=== PATIENT | male | born 1935 | race Caucasian/White ===

== ENCOUNTER 2019-02-03 12:12 | Inpatient (IN) ==
[2019-02-03] MEDS ORDERED: Ethanol\\Acetic Acid\\Na Ace\\Ben 1,000 ML IRRIG.SOLN IR ONE (12:30)
[2019-02-03] MEDS ORDERED: CeFAZolin Syr 2,000MG/20 ML 2,000 MG/20 ML SYRINGE IVPB ONE (12:33)
[2019-02-03] MEDS ORDERED: Ringers Solution, Lactated 1,000 ML IVC SCH ×2 (12:45→16:03)
--- NOTE | 2019-02-03 13:03 | Anesthesia Evaluation PreOp ---
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, Other ( Spinal stenosis, SCS, Chronic Lumbar back pain) Other Medical History: Denies Any Significant HX, GERD Anesthesia History: No Prior Anesthetic Complications, Past Anesthesia (BAck surgery, Knee surgery, Shoulder surgery) Alcohol Use: occasionally Drug use: none Medications and Allergies Aspirin [Lo-Dose Aspirin EC] 81 mg PO DAILY 02/03/19 [History] Omeprazole [PriLOSEC] 40 mg PO DAILY 02/03/19 [History] Simvastatin [Zocor] 80 mg PO DAILY 02/03/19 [History] Allergy/AdvReac Type Severity Reaction Status Date / Time No Known Allergies Allergy Verified 03/28/16 06:52 - Meds/Allergy Pre-op Review Medications Reviewed: Yes Allergies Reviewed: Yes Beta Blockers on Current Med List: No Anesthesia Results - Labs Laboratory Tests 02/02/19 02/02/19 02/02/19 16:07 16:07 16:07 WBC 5.2 Hgb 13.1 Hct 40.4 Plt Count 256 PT 11.3 INR 1.0 Sodium 139 Potassium 4.5 Chloride 105 Carbon Dioxide 26 BUN 26 H Creatinine 1.25 Est GFR (Non-Af Amer) 55 L - Imaging EKG: pending Anesthesia Exam O2 Sat Height 1.75 m Height 1.75 m Weight 72.121 kg Weight 72.121 kg O2 Sat by Pulse Oximetry 100 Vital Signs Temp Pulse Resp BP Pulse Ox 98.6 F 75 18 127/71 100 02/03/19 12:50 02/03/19 12:50 02/03/19 12:50 02/03/19 12:50 02/03/19 12:50 Height: 5'9" Weight: 159# BMI = 23.5 NPO (# of Hours): MNOc - HEENT Pupil (Motor): Pupils equal, EOMI Mallampati: II Teeth: Missing (several lower missing), Edentulous (upper) Oral Opening: Greater than 3 - 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 LOC: Oriented 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 Motor: Normal RUE, Normal LUE, Normal RLE, Normal LLE, Normal Face 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
[2019-02-03] MEDS ORDERED: Acetaminophen IV 1,000 MG/100 ML INFUS..BTL IVPB ONE (13:04)
[2019-02-03] MEDS ORDERED: Famotidine 20 MG/2 ML VIAL IVP ONE (13:04)
--- NOTE | 2019-02-03 13:15 | History & Physical Report ---
Date of Encounter: 02/03/19 Time of Encounter: 13:15 24 Hour HP Update - Instructions Instructions: If the History and Physical is less than 30 days old and was completed prior to A.M. admission and or procedure and has NOT been updated on calendar day of procedure please complete this update prior to performing procedure. - Update Patient reports changes in Medical Condition: No Changes in examination, assessment, or condition: No Changes in Medication: No Preop tests/diagnostics Reviewed: Yes Surgery Remains Indicated: Yes Consent for Planned Operative Procedure(s) Verified: Yes - Pre-Operative Checklist Preoperative Checklist Indicated: No Prophylactic Antibiotic Ordered: Yes Is VTE Prophylaxis Indicated?: Yes
[2019-02-03] MEDS ORDERED: *HR* FentaNYL (PF) 100 MCG/2 ML VIAL ONE (13:38)
[2019-02-03] MEDS ORDERED: *HR* Midazolam HCl 2 MG/2 ML VIAL ONE (13:38)
[2019-02-03] MEDS ORDERED: *HR* Propofol 200 MG/20 ML VIAL IVP ONE (13:38)
[2019-02-03] MEDS ORDERED: Lidocaine -MPF 2% 2 ML VIAL ONE (13:39)
[2019-02-03] MEDS ORDERED: ROPIVACAINE/PF/NS 0.25% 1 EACH SYRINGE INTRAART ONE (13:41)
[2019-02-03] MEDS ORDERED: Ropivacaine/PF 0.5% 30 ML VIAL ONE (13:41)
[2019-02-03] MEDS ORDERED: *HR* PHENYLEPHRINE 1,000 MCG/10 ML SYRINGE IVP ONE ×2 (14:16→14:52)
[2019-02-03] MEDS ORDERED: EPHEDrine 50 MG/ML VIAL ONE (14:25)
--- NOTE | 2019-02-03 14:49 | Anesthesia Procedures ---
Date of Encounter: 02/03/19 Time of Encounter: 13:42 Procedures: Anesthesia - Nerve Block Procedure Date: 02/03/19 Time: 13:42 Surgical Procedure: right total shoulder Checklist: Correct Patient Identifier, Correct procedure, History checked Correct side: Right Blood Thinner: No Monitor Applied: EKG, BP, Pulse Oximetry Supplemental Oxygen via Nasal Cannula (L/min): 2 Sedation: Versed (mg): 1 Sedation: Fentanyl (mcg): 50 Indication: Post Op Analgesia Block Type: Supraclavicular Catheter placed: No Sterile Technique: Yes Ultrasound used: Yes Anatomy identified: Yes Visual spread of Local: Yes Neuro Stimulation: No Blood on Needle Aspiration: No Smooth Injection of Local: Yes Pain with Injection of Local: No Prep: Chlorhexadine Needle: 22 x 50 mm Stimuplex Local: Ropivacaine (24ml 0.5% rop with 8mg decadron, (15ml 0.25% Rop plain, 5 for SCP, 10 for ICB)) Volume (cc): 41 Number of Attempts: 1 Complications: None/effective block Vitals: vss though out, block per request of surgeon.
--- NOTE | 2019-02-03 14:57 | Orthopedic Operative Note ---
Date of procedure: 02/03/19 Pre-op diagnosis: Right shoulder cuff tear arthropathy Post-op diagnosis: same Procedure: Procedure: Total Shoulder Replacment Reverse, right Estimated blood loss: 50 cc Hardware: Metal and polyethylene replacement: Arthrex 28, +4 , 40 mm post glenoid baseplate, 4 locking 5.5 screw, 42+4 glenosphere, 10 [place] humeral stem, poly insert 3 Exam Under anesthesia: Full motion no stability Procedural Notes: Irreparable rotator cuff tear Operative procedure: The patient was brought to the operating room and placed on the operating room table. After general anesthesia was administered the operative shoulder was examined. Findings were noted. The patient was placed in the modified beachchair position. All pressure points were padded appropriately. And the head was stabilized in the neutral position. The operative extremity was prepped and draped in the sterile surgical fashion. The patient received IV antibiotics prior to skin incision. A standard deltopectoral approach was made to the operative shoulder. Incision was made to the skin and subcutaneous tissue,hemo stasis was obtained with Bovie cautery. Using careful blunt dissection the cephalic vein was identified and mobilized medially. The deltopectoral interval was developed and the clavipectoral fascia was incised. The subscap was released off the lesser tuberosity and tagged with #2 FiberWire suture subscap was irreparable. The humerus was dislocated patient noted to have irreparable tear supraspinatus tendon, and the humeral cut was made along the anatomic neck. Anterior and posterior Bankart retractors were placed to expose the glenoid. The glenoid guide was seated and the centering hole was made. It was reamed with the appropriate reamer. The baseplate was seated and secured with 4 locking 5.5 screw. The baseplate was irrigated and dried and the Glenosphere was seated and secured with the Brandon taper. The Brandon taper was tested and found to be secure, glenosphere fixation was secondarily secured with the central screw. The humerus was redislocated and prepared with the diaphyseal reamers, followed by a broaching process up to the appropriate size [place] stem in the patient's anatomic version. The metaphyseal reamer was then utilized. Trial reduction found the shoulder to be relocatable. Trial components were removed and the [place] stem was impacted in place in the patient's anatomic version. Trial reduction found the shoulder to be relocatable and stable with the appropriate 3 poly. Trial component was removed and the real implant was seated and secured the shoulder was reduced. The shoulder had excellent motion and excellent stability and no evidence of dislocation. The deep tissue was irrigated with pulse irrigation. The PA close the shoulder. The deltopectoral interval was closed with a running #1 PDS suture, subcutaneous tissue was irrigated and closed with 0 PDS suture, the skin was closed with Dermabond. The patient was placed in a sterile dressing, abduction brace and extubated. The patient was then transferred to the recovery room in stable condition. Anesthesia: GETKaterina Surgeon: Benny Sanchez Was there an senior it assistant present: Yes Hitcher: Agustin Spivey Estimated blood loss (cc): 50 Condition: stable Disposition: PACU
--- NOTE | 2019-02-03 15:14 | Discharge Summary ---
<Beth Berg E - Last Filed: 02/04/19 23:26> Orders not resulted at time of discharge: Pending orders 02/03/19 15:00 Surgical Pathology [PTH] Routine Date of Encounter: 02/03/19 Time of Encounter: 16:00 - Discharge Diagnosis (1) Status post reverse arthroplasty of right shoulder Status: Acute - Hospital Course Hospital course: Mr. Sandra is a 83 year old male The patient's postoperative course was uneventful. Progressed from intravenous analgesic needs to oral analgesic needs only. Remained neurovascularly intact and mobilized satisfactorily. All radiographic studies were satisfactory. Patient course and disposition was followed by Dr. Sanchez. Patient seen by Dr. Sanchez as discharging physician on this day. Patient is discharged to home with outpatient therapy as plan for rehabilitation and outpatient orthopedic follow up has been arranged. - Time Spent with Patient Total time spent providing and/or coordinating discharge services: - Discharge Medications Prescriptions: New Docusate [Colace] 100 mg PO BID 5 Days #10 capsule Acetaminophen [Pain Relief] 500 mg PO Q6H 7 Days #28 tablet OxyCODONE Immed Rel [Roxicodone 5 MG] 5 mg PO Q6HR PRN 5 Days #20 tablet PRN Reason: Severe Pain Continued Simvastatin [Zocor] 80 mg PO DAILY Aspirin [Lo-Dose Aspirin EC] 81 mg PO DAILY Omeprazole [PriLOSEC] 40 mg PO DAILY Home Medications: Acetaminophen [Pain Relief] 500 mg PO Q6H 7 Days #28 tablet 02/03/19 [Rx] Aspirin [Lo-Dose Aspirin EC] 81 mg PO DAILY 02/03/19 [History] Docusate [Colace] 100 mg PO BID 5 Days #10 capsule 02/03/19 [Rx] Omeprazole [PriLOSEC] 40 mg PO DAILY 02/03/19 [History] OxyCODONE Immed Rel [Roxicodone 5 MG] 5 mg PO Q6HR PRN 5 Days #20 tablet 02/03/19 [Rx] Simvastatin [Zocor] 80 mg PO DAILY 02/03/19 [History] Allergies/Adverse Reactions: Allergy/AdvReac Type Severity Reaction Status Date / Time No Known Allergies Allergy Verified 03/28/16 06:52 Date of admission: 02/03/19 16:41 Primary care physician: Bentley Xiong DO Consults: 02/03/19 16:03 Consult to Occupational Therapy [CONS] Routine Comment: post shoulder surgery Reason for Consult: post shoulder surgery Does patient have active BEDREST order?: No Is patient medically & hemodynamically stable?: Yes Consult to Physical Therapy [CONS] Routine Comment: post shoulder surgery Reason for Consult: post shoulder surgery Does patient have active BEDREST order?: No Is patient medically & hemodynamically stable?: Yes Consult to Art Supervisor [CONS] Routine Reason for SW Consult: shoulder surgery RT Post Op Consult [CONS] Routine Discharging clinician: Benny Sanchez Anticipated date of discharge: 02/03/19 - VTE Documentation of Mechanical Device: Venous foot pump, device - Impressions ITS Impressions Shoulder X-Ray 02/03/19 20:51 IMPRESSION: Status post reverse shoulder arthroplasty without fracture or malalignment. D/ / Loc Alcaraz MD / Loc Alcaraz MD Interpreting Provider: Loc Alcaraz MD - Patient Status Disposition: Home, Self-Care Condition: Fair Functional capacity at discharge: independent ambulation Overall status at discharge: patient is progressing back to baseline - Discharge Instructions Follow Up With: Gris Quintero CNP [Advanced Practice Nurse] - 02/11/19 11:00 am Bentley Xiong DO [Primary Care Provider] - Additional Instructions: Discharge Instructions: Total Shoulder Please call [facility] ([phone]), your Primary Care Physician, or report to the Emergency Room if you have any of the following symptoms: Nausea, vomiting, fever greater that 101.5, swelling, chest pain, shortness of breath, increased pain/redness/drainage/odor for your incision site, numbness/tingling, or any other concerning symptoms. ACTIVITY: Always keep your arm in the sling. Do not raise your arm away from your body. Do not use your arm to help with getting in or out of bed. No weight bearing permitted. Only perform those exercises given to you by your therapist. Incentive Spirometer 10 times an hour. MEDICATIONS: Upon discharge resume your home medications. Take all the medications as prescribed. Take a stool softener if taking narcotic pain medications. Stool softeners are only effective if you drink enough fluids. Drink 6-8 glass of water or fluids a day, unless this is not allowed for another health problem. Despite using stool softeners, if you haven't had a bowel movement in 3 days, please switch to a gentle laxative. Gentle laxatives are sold over the counter. You should have a bowel movement within 24 hours, if not call the office. You will be discharged from the hospital with a prescription for pain medication. You are encouraged to decrease the use of narcotic pain medication as tolerated. Should you require a refill, please call the office. [facility] prescribes narcotic pain medication for only 4-6 weeks after surgery. If you require pain medication beyond this time period, you may be referred to your Primary Care Physician or to the Pain Clinic for further evaluation. Plan ahead for refills on pain medication as many narcotics either need to be picked up at the office or mailed. It is best to call 48-72 hours in advance of needing a prescription refill so you don't run out of medication. To help control the post-operative pain, you may take NSAIDs (Aleve,Advil, Motrin, Ibuprofen, Naprosyn) or Tylenol as prescribed on the bottle in addition to the pain medication. WOUND CARE: Leave the dressing on for 7-10 days. You may change the dressing if it becomes saturated greater than 50%. Do not get the dressing wet at anytime. Wash your hands with antibacterial soap, rinse and dry prior to any wound care. If you have yu the visiting nurse or rehab facility can remove the stapes 10-14 days after surgery and place steri-strips across the wound. Leave the steri-strips in place until they fall off on their own. You may let water from the shower run on top of the steri-strips. If you do not have a visiting nurse or rehab facility, you will need to return to the office at 10-14 days for the yu to be removed. If you have itching or redness around the dressing call the office. FOLLOW-UP: Please follow up with your surgeon in the orthopedic clinic, as scheduled - Diet and Activity Activity: as per physical therapy Diet: advance to your usual diet <Agustin Spivey - Last Filed: 02/09/19 09:13> Orders not resulted at time of discharge: Pending orders 02/03/19 15:00 Surgical Pathology [PTH] Routine Date of Encounter: 02/09/19 - Discharge Diagnosis (1) Right shoulder pain Status: Acute Qualifiers: Chronicity: acute Qualified Code(s): M25.511 - Pain in right shoulder (2) Status post reverse arthroplasty of right shoulder Status: Acute - Hospital Course Hospital course: Mr. Sandra is a 83 year old male - Time Spent with Patient Total time spent providing and/or coordinating discharge services: Primary care physician: Bentley Xiong DO
--- NOTE | 2019-02-03 15:51 | Anesthesia Evaluation Post Op ---
Date of Encounter: 02/03/19 Time of Encounter: 15:46 - Vital Signs Vital Signs: vss - Lungs Lungs: Clear Ascult./Percussion - Airway Airway: Non-obstructed - Cardiovascular Baseline Rhythm - Mental Status Mental Status: Alert & Oriented, Answers Appropriately - Pain Pain Scale used: Nelson (Faces) - Nausea Vomiting Nausea Vomiting: Not Present - Hydration Hydration: Ice chips - Discharge PostOp Status: Transfer Patient to floor
[2019-02-03 16:01] LABS: Hematocrit 36.9 % (37.5-50.1)
[2019-02-03] MEDS ORDERED: Sennosides 8.6 MG TABLET PO PRN (16:03)
[2019-02-03] MEDS ORDERED: Ondansetron 4 MG/2 ML VIAL IVP PRN (16:03)
[2019-02-03] MEDS ORDERED: traMADol 50 MG TABLET PO PRN (16:03)
[2019-02-03] MEDS ORDERED: Temazepam 15 MG CAPSULE PO PRN (16:03)
[2019-02-03] MEDS ORDERED: *HR* OxyCODONE Immed Rel 5 MG TABLET PO PRN (16:03)
[2019-02-03] MEDS ORDERED: MOM Conc 10 ML UD.LIQ PO PRN (16:03)
[2019-02-03] MEDS ORDERED: *HR* OxyCODONE/APAP 5/325 TABLET PO PRN (16:03)
[2019-02-03] MEDS ORDERED: *HR* Enoxaparin 30 MG/0.3 ML SYRINGE SQ SCH ×2 (18:00)
[2019-02-03 20:07] VITALS: BP 139/80
--- NOTE | 2019-02-03 22:03 | Electrocardiograph Report ---
[address] [place], [place] [address] Test Date: 2019-02-03 Pat Name: Dimitris Sandra Department: 106 Room: [facility] Gender: M Heel Packer: NIYAH : [id number] Requested By: Benny Sanchez Order Number: [id number] Reading MD: Angela Martinez Measurements Intervals [place] Rate: 71 P: 41 [place]: 187 QRS: -65 QRSD: 105 T: 66 QT: 399 QTc: 422 Interpretive Statements SINUS RHYTHM INCOMPLETE RIGHT BUNDLE BRANCH BLOCK LEFT ANTERIOR FASCICULAR BLOCK MINIMAL VOLTAGE CRITERIA FOR LVH, CONSIDER NORMAL VARIANT SEPTAL MYOCARDIAL INFARCTION, OF INDETERMINATE AGE Electronically Signed On 02-03-2019 22:01:24 EDT by Angela Martinez
[2019-02-04] MEDS ORDERED: Aspirin Enteric Coated 81 MG Tablet PO SCH (09:00)
== END 2019-02-03 19:40 | disposition home or self-care (01) | DRG 483 ==
LOC: SAMDAY 12:12 → 3NENU 16:41
PROVIDERS: ADMIT Orthopaedic Surgery; ATTEND Orthopaedic Surgery

== ENCOUNTER 2022-03-08 19:49 | Observation (INO) ==
[2022-03-08] MEDS ORDERED: 0.9 % Sodium Chloride 1,000 ML IVC ONE ×2 (22:22→23:33)
[2022-03-08] MEDS ORDERED: Acetaminophen IV 1,000 MG/100 ML BAG IVPB ONE (22:41)
[2022-03-08 22:49] LABS: Basophils % 0.4 %; Eosinophils % 0.4 %; Hematocrit 35.2 % (37.5-50.1); Hemoglobin 11.9 g/dL (12.9-16.9); Immature Granulocytes % 0.5 % (0-4); Lymphocytes # 1.2 K/mcL (0.6-4.6); Lymphocytes % 13.6 %; Mean Corpuscular HGB Conc 33.8 g/dL (31.6-35.5); Mean Corpuscular Hemoglobin 30.9 pg (28.0-33.3); Mean Corpuscular Volume 91.4 fL (83.0-100.0); Mean Platelet Volume 10.2 fL (9.4-12.4); Monocytes # 0.9 K/mcL (0.0-1.3); Monocytes % 10.7 %; Neutrophils # 6.3 K/mcL (1.6-8.9); Platelet Count 291 K/mcL (140-400); Red Blood Count 3.85 M/mcL (4.19-5.50); Red Cell Distribution Width 12.5 % (11.5-14.5); Segmented Neutrophils % 74.4 %; White Blood Count 8.5 K/mcL (4.3-11.1)
[2022-03-08 22:57] LABS: INR 1.4; Prothrombin Time 15.6 Seconds (9.4-12.1)
[2022-03-08 23:00] LABS: Activated Partial Thrombo Time 31.9 Seconds (26.0-36.0)
[2022-03-08 23:12] LABS: Alanine Aminotransferase 35 Units/L (7-52); Albumin 3.4 g/dL (3.5-5.7); Albumin/Globulin Ratio 0.9 (1.1-2.2); Alkaline Phosphatase 83 Units/L (34-104); Aspartate Amino Transferase 40 Units/L (13-39); BUN/Creatinine Ratio 17 (6-26); Bilirubin,Direct 0.2 mg/dL (0.0-0.2); Bilirubin,Indirect 0.7 mg/dL (0.0-1.0); Bilirubin,Total 0.9 mg/dL (0.3-1.0); Blood Urea Nitrogen 33 mg/dL (8-23); Calcium 8.8 mg/dL (8.6-10.3); Carbon Dioxide 23 mEq/L (23-29); Chloride 101 mEq/L (98-107); Ethanol < 10 mg/dL (Less than 10); Globulin 3.7 g/dL (2.4-3.5); Glucose 101 mg/dL (70-105); Osmolality,Calculated 289 (280-300); Potassium 3.8 mEq/L (3.5-5.1); Sodium 136 mEq/L (136-145); Total Protein 7.1 g/dL (6.4-8.9); Troponin I 0.03 ng/mL (< 0.04)
[2022-03-08 23:25] LABS: Thyroid Stimulating Hormone 2.359 mcIU/mL (0.340-5.600)
[2022-03-09] MEDS ORDERED: Iopamidol - 370 500 ML MLS IVP ONE (00:05)
[2022-03-09 00:20] LABS: Bilirubin,Urine Negative (Negative); Blood,Urine Negative (Negative); Clarity,Urine Clear (Clear); Color,Urine Yellow (Yellow); Glucose,Urine (UA) Normal (Normal); Ketones,Urine 10 mg/dL (Negative); Leukocyte Esterase,Urine Negative (Negative); Mucus,Urine Few per lpf (None-Few); Nitrite,Urine Negative (Negative); Protein,Urine 50 mg/dL (Neg-Trace); RBC,Urine 0-3 per hpf (0-3); Specific Gravity,Urine 1.022 (1.010-1.025); Urobilinogen,Urine Normal (Normal); WBC,Urine 0-3 per hpf (0-3)
[2022-03-09 00:28] LABS: Amphetamine Screen,Urine Negative ng/mL (Cutoff=1000); Barbiturate Screen,Urine Negative ng/mL (Cutoff=200); Benzodiazepines Screen,Urine Negative ng/mL (Cutoff=200); Cannabinoid Screen,Urine Negative ng/mL (Cutoff = 50); Cocaine Screen,Urine Negative ng/mL (Cutoff= 300); Opiate Screen,Urine Negative ng/mL (Cutoff=300); Phencyclidine Screen,Urine Negative ng/mL (Cutoff=25)
[2022-03-09] MEDS ORDERED: Naloxone 0.4 MG/ML INJ IVP PRN ×2 (01:23→12:26)
[2022-03-09] MEDS ORDERED: Acetaminophen 325 MG TABLET PO PRN ×2 (01:23→12:26)
[2022-03-09] MEDS ORDERED: Melatonin 3 MG TABLET PO PRN ×2 (01:23→12:26)
[2022-03-09] MEDS ORDERED: Ringers Solution, Lactated 1,000 ML IVC SCH (01:30)
[2022-03-09] MEDS ORDERED: *HR* Dextrose 50 % in Water (Syg) 50 ML SYRINGE IVP PRN ×2 (07:13→12:26)
[2022-03-09] MEDS ORDERED: D5% in Water 1,000 ML IVC PRN ×2 (07:13→12:26)
[2022-03-09] MEDS ORDERED: Dextrose Gel 15 GM/37.5 ML TUBE PO PRN ×4 (07:13→12:26)
[2022-03-09 07:19] LABS: Basophils % 0.3 %; Eosinophils % 0.3 %; Hematocrit 32.8 % (37.5-50.1); Hemoglobin 10.8 g/dL (12.9-16.9); Immature Granulocytes % 0.4 % (0-4); Lymphocytes # 1.4 K/mcL (0.6-4.6); Mean Corpuscular HGB Conc 32.9 g/dL (31.6-35.5); Mean Corpuscular Hemoglobin 30.4 pg (28.0-33.3); Mean Corpuscular Volume 92.4 fL (83.0-100.0); Mean Platelet Volume 10.3 fL (9.4-12.4); Monocytes # 0.9 K/mcL (0.0-1.3); Monocytes % 9.5 %; Neutrophils # 6.7 K/mcL (1.6-8.9); Platelet Count 277 K/mcL (140-400); Red Blood Count 3.55 M/mcL (4.19-5.50); Red Cell Distribution Width 12.7 % (11.5-14.5); Segmented Neutrophils % 74.5 %
[2022-03-09 07:25] LABS: INR 1.4; Prothrombin Time 15.7 Seconds (9.4-12.1)
[2022-03-09 07:28] LABS: Activated Partial Thrombo Time 30.5 Seconds (26.0-36.0)
[2022-03-09 07:33] LABS: Albumin 3.1 g/dL (3.5-5.7); Bilirubin,Total 0.6 mg/dL (0.3-1.0); Calcium 8.2 mg/dL (8.6-10.3); Magnesium 2.5 mg/dL (1.6-2.6); Phosphorous 2.9 mg/dL (2.7-4.5); Potassium 3.9 mEq/L (3.5-5.1); Total Protein 6.1 g/dL (6.4-8.9)
[2022-03-09] MEDS ORDERED: Aspirin Enteric Coated 81 MG Tablet PO SCH (09:00)
[2022-03-09] MEDS ORDERED: Lidocaine -MPF 2% 2 ML VIAL ONE (09:39)
[2022-03-09] MEDS ORDERED: *HR* Propofol 200 MG/20 ML VIAL IVP ONE (09:39)
[2022-03-09] MEDS ORDERED: Ondansetron 4 MG/2 ML VIAL ONE (09:39)
[2022-03-09] MEDS ORDERED: *HR* FentaNYL (PF) 100 MCG/2 ML VIAL ONE (09:39)
[2022-03-09] MEDS ORDERED: Famotidine 20 MG/2 ML VIAL IVP ONE (10:15)
[2022-03-09] MEDS ORDERED: Acetaminophen IV 1,000 MG/100 ML BAG IVPB ONE (10:15)
[2022-03-09] MEDS ORDERED: Iopamidol - 300 50 ML VIAL ONE (10:20)
[2022-03-09] MEDS ORDERED: EPHEDrine sulfate 50 MG/10 ML VIAL IVP ONE (10:49)
[2022-03-09] MEDS ORDERED: *HR* HYDROmorphone PF 0.5 MG/0.5 ML SYRINGE IVP PRN (11:14)
[2022-03-09] MEDS ORDERED: Ondansetron 4 MG/2 ML VIAL IVP PRN (11:14)
[2022-03-09] MEDS: Ringers Solution, Lactated 1,000 ML IVC SCH (13:00)
[2022-03-09] MEDS ORDERED: QUEtiapine Fumarate 25 MG TABLET PO ONE (22:53)
[2022-03-10] MEDS: Ringers Solution, Lactated 1,000 ML IVC SCH (07:19)
[2022-03-10 08:50] LABS: Calcium 8.5 mg/dL (8.6-10.3); Potassium 3.8 mEq/L (3.5-5.1)
[2022-03-10] MEDS ORDERED: Aspirin Enteric Coated 81 MG Tablet PO SCH (09:00)
[2022-03-10 10:58] VITALS: BP 131/72; PULSE 91; TEMP 98.2; O2SAT 95
== END 2022-03-10 13:11 | disposition home or self-care (01) ==
LOC: EMEROOARM 19:49 → 3BNU 19:49 → SUATTDRO 03-09 01:34 → 3BNU 03-09 02:27
PROVIDERS: ADMIT Internal Medicine; ATTEND Internal Medicine